=== PATIENT | female | born 1940 | race Caucasian/White ===

== ENCOUNTER 2017-05-09 13:11 | Emergency (ER) | payer OTHER ==
[2017-05-09 13:24] VITALS: RESP 16
--- NOTE | 2017-05-09 13:45 | EDPHY ---
H & P Stated Complaint: L calf soreness x 1 wk;recent travel;sent for [place] Source: Patient Exam Limitations: No limitations - Personal History Current Tetanus Diphtheria and Acellular Pertussis (TDAP): Yes - Medical/Surgical History Hx Asthma: No Hx Chronic Respiratory Disease: No Hx Diabetes: No Hx Cardiac Disease: No Hx Renal Disease: No Hx Cirrhosis: No Hx Alcoholism: No Other PMH: thyroid. anxiety - Family History Significant Family History: No pertinent family hx - Social History Smoking Status: Never smoked Alcohol Use: Sober Drug Use: None Time Seen by Provider: 05/09/17 13:33 HPI/ROS: CHIEF COMPLAINT: Left leg swelling HISTORY OF PRESENT ILLNESS: Patient is a 76-year-old female who comes to the emergency department complaining of swelling in her left leg that she noticed a week ago after a trip to [place]. She had been to [facility] the week before that. She has not had any trauma. No fever or signs of infection. She denies significant past medical history. She does not take any blood thinners. No smoking. No history of cancer. No recent procedures. She does take Synthroid. REVIEW OF SYSTEMS: Constitutional: denies: chills, fever, recent illness, recent injury EENTM: denies: blurred vision, double vision, nose congestion Respiratory: denies: cough, shortness of breath Cardiac: denies: chest pain, irregular heart rate, lightheadedness, palpitations Gastrointestinal/Abdominal: denies: abdominal pain, diarrhea, nausea, vomiting, blood streaked stools Genitourinary: denies: dysuria, frequency, hematuria, pain Musculoskeletal: See HPI Skin: denies: lesions, rash, jaundice, bruising Neurological: denies: headache, numbness, paresthesia, tingling, dizziness, weakness Hematologic/Lymphatic: denies: blood clots, easy bleeding, easy bruising Immunologic/allergic: denies: HIV/AIDS, transplant EXAM: GENERAL: Well-appearing, well-nourished and in no acute distress. HEAD: Atraumatic, normocephalic. EYES: Pupils equal round and reactive to light, extraocular movements intact, sclera anicteric, conjunctiva are normal. ENT: TMs normal, nares patent, oropharynx clear without exudates. Moist mucous membranes. NECK: Normal range of motion, supple without lymphadenopathy or JVD. LUNGS: Breath sounds clear to auscultation bilaterally and equal. No wheezes rales or rhonchi. HEART: Regular rate and rhythm without murmurs, rubs or gallops. ABDOMEN: Soft, nontender, normoactive bowel sounds. No guarding, no rebound. No masses appreciated. BACK: No CVA tenderness, no spinal tenderness, step-offs or deformities EXTREMITIES: Left lower extremity with minimal swelling visible with decreased wrinkling around knee area. No tenderness. No cords. No erythema. Negative Homans. NEUROLOGICAL: Cranial nerves II through XII grossly intact. Normal speech, normal gait. 5/5 strength, normal movement in all extremities, normal sensation PSYCH: Normal mood, normal affect. SKIN: Warm, dry, normal turgor, no visible rashes or lesions. (Monty Najera) Constitutional: Initial Vital Signs Temperature (C) 36.5 C 05/09/17 13:20 Heart Rate 63 05/09/17 13:20 Respiratory Rate 16 05/09/17 13:20 Blood Pressure 131/67 H 05/09/17 13:20 O2 Sat (%) 98 05/09/17 13:20 O2 Delivery Mode Room Air Allergies/Adverse Reactions: mangoes Allergy (Uncoded 05/09/17 13:19) Home Medications: Medication Instructions Recorded Anxiety Med 05/09/17 Levothyroxine [Synthroid 100 mcg 100 mcg PO DAILY06 05/09/17 (*)] Medical Decision Making ED Course/Re-evaluation: Patient is well appearing. Ultrasound pending. Care transferred to Dr. Rafa Tamayo at 3:00 p.m.. (Monty Najera) Differential Diagnosis: Partial list of the Differential diagnosis considered include but were not limited to; DVT, edema and although unlikely based on the history and physical exam, I also considered cellulitis, Hernandez cyst. (Monty Najera) Other Provider: 1500: I assumed care of this patient at shift change from Dr. Najera pending ultrasound results to rule out DVT. US is negative per radiologist. Assessed patient and discussed findings with patient. She will be discharged home in good condition with standard follow up and return precautions. She is comfortable with this plan. (Rafa Tamayo) Departure - Departure Disposition: Home, Routine, Self-Care Clinical Impression: Left leg pain Condition: Good Instructions: Leg Pain (ED) Additional Instructions: Use Tylenol and ibuprofen as directed on the packaging as needed for pain over the next few days. Follow up with your primary care provider for unimproved symptoms over the next few days. Return to the ED for severe pain, chest pain, shortness of breath, fever, or other worsening of condition. Referrals: My Vaughan MD [Primary Care Provider] - As per Instructions
[2017-05-09 15:52] VITALS: BP 150/91; PULSE 50; TEMP 97.9; O2SAT 96
== END 2017-05-09 15:45 | disposition home or self-care (01) ==
DX: M79.605 Pain in left leg (principal)

== ENCOUNTER → 2018-02-03 | Outpatient (CLI) | payer OTHER | LOC: FIMAGING 09:46 | PROVIDERS: ATTEND Family Medicine | DX: M17.12 Unilateral primary osteoarthritis, left knee (principal) ==

== ENCOUNTER → 2018-02-07 | Outpatient (CLI) | payer OTHER | LOC: BMCIMAGING 10:18 | PROVIDERS: ATTEND Family Medicine | DX: Z13.820 Encounter for screening for osteoporosis (principal); M81.0 Age-related osteoporosis without current pathological fracture; Z78.0 Asymptomatic menopausal state ==